=== PATIENT | female | born 1990 | race African-American/Black ===

== ENCOUNTER → 2016-09-15 | Outpatient (CLI) | payer MEDICAID ==
[2016-09-15 10:57] LABS: Basophils # (auto) 0 uL; Basophils % (auto) 0.2 % (0.0-2.0); CONDITION Y; Eosinophils # (auto) 0 uL; Eosinophils % (auto) 0.3 % (0.0-7.0); Hematocrit 35.2 % (36.0-46.0); Hemoglobin 12.1 g/dL (12.2-16.2); Lymphocytes # (auto) 1.5 uL; Lymphocytes % (auto) 20.9 % (10.0-50.0); Mean Corpuscular Hemoglobin 32.3 pg (28.0-32.0); Mean Corpuscular Hgb Conc. 34.5 g/dL (32.0-36.0); Mean Corpuscular Volume 93.6 fL (80.0-100.0); Monocytes # (auto) 0.4 uL; Monocytes % (auto) 6.5 % (0.0-12.0); Neutrophils % (auto) 72.1 % (37.0-80.0); Platelet Count (auto) 265 10^3/uL (140-450); Red Cell Distribution Width 13.3 % (11.6-16.0); White Blood Cell 6.9 10^3/uL (4.4-10.8)
== END | disposition home or self-care (01) ==
LOC: LAB 10:07
PROVIDERS: ATTEND Obstetrics & Gynecology
DX: Z34.80 Encounter for supervision of other normal pregnancy, unspecified trimester (principal)
CPT/HCPCS: 36415; 80307; 83036; 84702; 85025; 86703; 86762; 86850; 86900; 86901; 87086; 87340

== ENCOUNTER 2017-02-16 19:05 | Inpatient (IN) | payer MEDICAID ==
[~2017-02-16] VITALS: Ht 175.3 cm; Wt 0.5 kg
[~2017-02-16 19:05] MED LIST: PREN-96 PO
[2017-02-16] MEDS ORDERED: LACTATED RINGER'S 1,000 ML IV ONE (19:54)
[2017-02-16] MEDS: LACTATED RINGER'S 1,000 ML IV SCH (20:10)
[2017-02-16] MEDS ORDERED: MICONAZOLE NITRATE 2 % VAGINAL CREAM 45 GM PV ONE (21:00)
[2017-02-16 21:16] LABS: Urine Bacteria MANY /hpf (None Seen); Urine Blood Negative /uL (Negative); Urine Specific Gravity 1.005 (1.001-1.035); Urine WBC 2 /hpf (0 - 5)
[2017-02-16 21:32] LABS: Alcohol, Urine < 3.0 mg/dL (0-5); Amphetamine Screen, Urine NEGATIVE (NEGATIVE); Barbiturate Scree,Urine NEGATIVE (NEGATIVE); Benzodiazephine Screen, Urine NEGATIVE (NEGATIVE); Cannabinoid Screen, Urine NEGATIVE (NEGATIVE); Cocaine Screen, Urine NEGATIVE (NEGATIVE); Opiate Scree,Urine NEGATIVE (NEGATIVE); Phencyclidine Screen, Urine NEGATIVE (NEGATIVE)
[2017-02-17] MEDS ORDERED: cefTRIAXone 1GM/10ml IVPUSH 20 ML IV ONE (00:06)
[2017-02-17] MEDS ORDERED: CEFTRIAXONE SODIUM 2 GM in D5W 5% 50 ML IV ONE (00:15)
[2017-02-17 03:51] LABS: Basophils # (auto) 0 uL; Basophils % (auto) 0.7 % (0.0-2.0); Eosinophils # (auto) 0 uL; Eosinophils % (auto) 0.2 % (0.0-7.0); Hematocrit 29.9 % (36.0-46.0); Hemoglobin 10.2 g/dL (12.2-16.2); Lymphocytes # (auto) 1.8 uL; Lymphocytes % (auto) 34.1 % (10.0-50.0); Mean Corpuscular Hemoglobin 31.3 pg (28.0-32.0); Monocytes # (auto) 0.5 uL; Monocytes % (auto) 9.6 % (0.0-12.0); Neutrophils # (auto) 2.9 uL; Neutrophils % (auto) 55.4 % (37.0-80.0); Nucleated Red Blood Cells % 0.1 %; Platelet Count (auto) 241 10^3/uL (140-450); Red Blood Cells 3.25 10^6/uL (4.0-5.20); Red Cell Distribution Width 14.1 % (11.8-14.3); White Blood Cell 5.3 10^3/uL (4.4-10.8)
[2017-02-17 04:05] LABS: INR 0.91 (0.9-1.15); Partial Thromboplastin Time 33.9 sec (22.64-33.71); Prothrombin Time 9.9 sec (9.37-12.3)
[2017-02-17 04:06] LABS: BUN/Creatinine Ratio 13.5; Bilirubin, Total 0.4 mg/dL (0.2-1.0); Calcium 7.6 mg/dL (8.5-10.1); Potassium 3.1 mmol/L (3.5-5.1); Total Protein 6.7 g/dL (6.4-8.2)
[2017-02-17] MEDS: LACTATED RINGER'S 1,000 ML IV SCH ×3 (05:00→19:54)
[2017-02-17] MEDS ORDERED: TETRACAINE 1% INJ 2 ML VIAL IJ ONE (14:50)
[2017-02-17] MEDS ORDERED: SUCCINYLCHOLINE CHLORIDE 20 MG/ML 10ML VIAL IV ONE (14:50)
[2017-02-17] MEDS ORDERED: MORPHINE SULF(PF) 0.5MG/ML 10ML VIAL ONE (14:54)
[2017-02-17] MEDS ORDERED: MIDAZOLAM HCL 1MG/1ML-2 ML VIAL ONE (14:55)
[2017-02-17] MEDS ORDERED: SODIUM CHLORIDE LOCK 10 ML ONE (14:55)
[2017-02-17] MEDS ORDERED: fentaNYL CITRATE 100 MCG/2 ML VL ONE (14:55)
[2017-02-17] MEDS ORDERED: OXYTOCIN 10 UNIT/ML 10ML VIAL ONE (14:55)
[2017-02-17] MEDS ORDERED: ONDANSETRON HCL 4 MG/2 ML VIAL ONE (14:55)
[2017-02-17] MEDS ORDERED: ceFAZolin 1GM VL ONE (14:55)
[2017-02-17] MEDS: POTASSIUM CHL 20MEQ/50ML 50 ML IV SCH ×2 (16:45→19:20)
[2017-02-17] MEDS ORDERED: LACTATED RINGER'S 1,000 ML IV SCH (16:56)
[2017-02-17] MEDS ORDERED: METOCLOPRAMIDE HCL 5MG/ml INJ 2ml VIAL IV ONE (17:00)
[2017-02-17] MEDS ORDERED: ONDANSETRON HCL 4 MG/2 ML VIAL IV PRN (17:00)
[2017-02-17] MEDS ORDERED: KETOROLAC TROMETH 30 MG/ML 1ML VIAL IV ONE (17:00)
[2017-02-17] MEDS ORDERED: NALOXONE HCL 0.4 MG/ML VIAL IV PRN (17:00)
[2017-02-17] MEDS ORDERED: HYDROmorphone HCL 2 MG/ML VL IV PRN (17:00)
[2017-02-17] MEDS: KETOROLAC TROMETH 30 MG/ML 1ML VIAL IV SCH (18:46)
[2017-02-17] MEDS: diphenhdrAMINE HCL 50 MG/1 ML VL IV PRN (19:28)
[2017-02-17 20:00] VITALS: BP 107/59
[2017-02-17] MEDS: HYDROmorphone HCL 2 MG/ML VL IV PRN (20:25)
[2017-02-17 21:00] VITALS: BP 88/53
[2017-02-17 22:00] VITALS: BP 90/59
[2017-02-17] MEDS: ceFAZolin 1GM/50ML 50 ML IV SCH (23:07)
[2017-02-17 23:10] VITALS: BP 89/61
[2017-02-18] VITALS (10 sets, daily range): BP systolic 95–116; BP diastolic 52–72
[2017-02-18] MEDS: KETOROLAC TROMETH 30 MG/ML 1ML VIAL IV SCH ×3 (00:20→12:01)
[2017-02-18] MEDS: diphenhdrAMINE HCL 50 MG/1 ML VL IV PRN ×3 (01:25→11:02)
[2017-02-18] MEDS: HYDROmorphone HCL 2 MG/ML VL IV PRN ×2 (03:37→07:34)
[2017-02-18] MEDS: ceFAZolin 1GM/50ML 50 ML IV SCH ×2 (07:25→14:56)
[2017-02-18 07:53] LABS: Basophils # (auto) 0 uL; Basophils % (auto) 0.1 % (0.0-2.0); Eosinophils # (auto) 0 uL; Eosinophils % (auto) 0.2 % (0.0-7.0); Hematocrit 28.5 % (36.0-46.0); Hemoglobin 9.7 g/dL (12.2-16.2); Lymphocytes # (auto) 1.2 uL; Lymphocytes % (auto) 20.4 % (10.0-50.0); Mean Corpuscular Hemoglobin 31.5 pg (28.0-32.0); Mean Corpuscular Hgb Conc. 34.1 g/dL (32.0-36.0); Mean Corpuscular Volume 92.2 fL (80.0-100.0); Monocytes # (auto) 0.5 uL; Monocytes % (auto) 8.1 % (0.0-12.0); Neutrophils # (auto) 4.1 uL; Neutrophils % (auto) 71.2 % (37.0-80.0); Nucleated Red Blood Cells % 0.1 %; Platelet Count (auto) 227 10^3/uL (140-450); Red Blood Cells 3.09 10^6/uL (4.0-5.20); Red Cell Distribution Width 14.1 % (11.8-14.3); White Blood Cell 5.7 10^3/uL (4.4-10.8)
[2017-02-18] MEDS ORDERED: PREN27TA7 PO (10:42)
[2017-02-18] MEDS ORDERED: HYDROcodone-ACET 5/325MG TAB PO PRN (16:45)
[2017-02-18] MEDS: IBUPROFEN 800 MG TAB PO PRN (16:58)
[2017-02-18] MEDS ORDERED: SIMETHICONE 80 MG CHEWABLE TABLET PO PRN (17:00)
[2017-02-18] MEDS: HYDROcodone-ACET 5/325MG TAB PO PRN (19:30)
[2017-02-18] MEDS: DOCUSATE SOD 100 MG CAP PO SCH (23:10)
[2017-02-19 03:45] VITALS: BP 114/61
[2017-02-19] MEDS: HYDROcodone-ACET 5/325MG TAB PO PRN ×2 (03:51→15:32)
[2017-02-19] MEDS: IBUPROFEN 800 MG TAB PO PRN ×3 (06:40→23:25)
[2017-02-19 08:00] VITALS: BP 105/60
[2017-02-19] MEDS: DOCUSATE SOD 100 MG CAP PO SCH ×2 (10:12→22:09)
[2017-02-19 12:12] VITALS: BP 105/70
[2017-02-19 16:25] VITALS: BP 101/62
[2017-02-19 19:15] VITALS: BP 108/55
[2017-02-19 23:00] VITALS: BP 117/70
[2017-02-20 03:28] VITALS: BP 99/60
[2017-02-20] MEDS: HYDROcodone-ACET 5/325MG TAB PO PRN (05:54)
[2017-02-20 08:00] VITALS: BP 111/62
[2017-02-20] MEDS: DOCUSATE SOD 100 MG CAP PO SCH (10:30)
[2017-02-20 12:20] VITALS: BP 103/70
== END 2017-02-20 13:15 | disposition home or self-care (01) | DRG 540 ==
LOC: OBSVTOIN 19:05 → LDRP 19:05
PROVIDERS: ADMIT Specialist; ATTEND Specialist
PROC: 0UL70CZ Occlusion of Bilateral Fallopian Tubes with Extraluminal Device, Open Approach (ICD-10-PCS; 2017-02-17)
PROC: 10D00Z1 Extraction of Products of Conception, Low, Open Approach (ICD-10-PCS; principal; 2017-02-17 15:23)
DX: O34.211 Maternal care for low transverse scar from previous cesarean delivery (principal); O60.14X0 Preterm labor third trimester with preterm delivery third trimester, not applicable or unspecified; E87.6 Hypokalemia; O75.89 Other specified complications of labor and delivery; Z30.2 Encounter for sterilization; Z3A.35 35 weeks gestation of pregnancy; Z37.0 Single live birth; Z88.8 Allergy status to other drugs, medicaments and biological substances; Z91.040 Latex allergy status
CPT/HCPCS: 36415; 51702; 59025; 80053; 80307; 81001; 81002; 84132; 85025; 85610; 85730; 86850; 86900; 86901; 94762; 96365; 96366; 96372; 96374; 96375; G0378; J0330; J0690; J0696; J1885; J2250; J2405; J2590; J7060